=== PATIENT | female | born 1960 ===

== ENCOUNTER 2025-10-16 11:23 | Outpatient (AMB) | payer BC, SELFPAY ==
--- NOTE | 2025-10-16 11:24 | MHC.OFFVIS ---
Vital Signs 10/16/25 11:30 Height 5 ft 1 in Weight 145 lb BMI 27.4 Intake Visit Reasons: F/U after injection 08/29/2025 Intake Note: Patient is a 65 year old female in office today for a follow up after Left Hip Injection 08/29/25 injection did help the hip pain but concerned about the numbness thats in the hip and stops at the knee pulling pain Allergies acetaminophen (From Percocet) Allergy (Unknown, Verified 10/16/25 11:27) Unknown naproxen Allergy (Unknown, Verified 10/16/25 11:27) Unknown oxycodone (From Percocet) Allergy (Unknown, Verified 10/16/25 11:27) Unknown pseudoephedrine (From Sudafed) Allergy (Unknown, Verified 10/16/25 11:) Unknown HPI Comments Details: History of Present Illness The patient is a 65 year old female presenting for evaluation of left leg numbness. She reports the numbness is in her left leg, starting in the hip area and moving up, and it began after a hip operation. She states that she is also experiencing neuropathy. The patient has a history of left hip pain and is in need of a hip replacement. She recently received an injection in the hip. She reports 60% reduction of her hip pain with the hip injection 08/29/2025. She also reports issues with her left iliotibial (IT) band, which physical therapy previously addressed, and notes that using a foam roller was not helpful. 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 Patient's insurance will be changing in November. She would like to consider epidural injection but she would like to do it under her new insurance. Pain Description - Quality: The patient describes the sensation as numbness and neuropathy. - Location: The numbness is in the left leg, starting in the hip area and then moving up. - Onset: The symptoms began after her hip operation. Results - Imaging: An MRI performed on July 02, 2025, revealed severe left neuroforaminal stenosis at L5-S1. [facility] Surgical History (Updated 10/13/25 @ 15:43 by Pretty Rosas MA) History of hip replacement History of Social History (Updated 10/13/25 @ 15:44 by Pretty Rosas MA) Alcohol intake: current Alcohol intake frequency: holidays/special occasions only Current occupational status: employed Current occupation: parts sales manager Review of Systems Narrative Review of Systems - Neurological: Reports numbness in the left leg. - Musculoskeletal: Reports hip pain requiring replacement and a history of hip operation. - Musculoskeletal: Denies back pain, even with extension. - Constitutional: Denies sore throat. Physical Exam Exam Exam: Physical Exam Lumbar Spine: Examination of her lumbar spine, there is no visible swelling or deformity. She is tender to lower lumbar facets. She is otherwise nontender. Full range of motion of her lumbar spine. Special Tests: Lhermittes sign was negative Heel Toe walk is normal Left straight leg raise: Positive left Right straight leg raise: Negative Special tests Mariluz test is negative Ganslen's test is negative SI Joint compression test negative Lenin test negative Piriformis stretch is negative Lower Extremities: Less pain with left hip range of motion. Neuro: Sensation: Intact to lower extremities bilaterally Strength L2 (Psoas): 5/5 on the left and 5/5 on the right. L3 (Quads): 5/5 on the left and 5/5 on the right. L4 (Ant tibialis): 5/5 on the left and 5/5 on the right. L5 (EHL) 5/5 on the left and 5/5 on the right. S1 (Gastroc): 5/5 on the left and 5/5 on the right. DTR L4: (Patellar) Left 2 Right 2 S1: (Achilles) Left 1 Right 1 Babinski Downgoing No pathologic clonus. No involuntary movement. Vital Signs: BMI result Body Mass Index 27.4 Results Reviewed Results Reviewed: MRI lumbar spine 07/02/2025 impression: Degenerative changes lumbar spine with central canal and foraminal narrowing as detailed above. Severe left foraminal stenosis at L5-S1, which can be correlated with patient's symptoms and neurological examination. Assessment & Plan Assessment & Plan (1) Osteoarthritis of left hip: Code(s): M16.12 - Unilateral primary osteoarthritis, left hip Category: Medical Qualifiers: Osteoarthritis type: primary Qualified Code(s): M16.12 - Unilateral primary osteoarthritis, left hip (2) Lumbar radiculopathy: Code(s): M54.16 - Radiculopathy, lumbar region Category: Medical Plan Pain Management - Analgesia: The patient recently had a hip injection on August 29. - Analgesia: Gabapentin was discussed as a treatment option for nerve pain. - Analgesia: Tylenol was mentioned as an option for pain. - Aberrant Drug-Related Behaviors: The patient notes that injections are not addictive. Plan Patient was informed and verbally consented to the use of an ambient scribe for clinic note documentation during this visit. 1. Left Leg Numbness Secondary To Lumbar Neuroforaminal Stenosis The patient's left leg numbness is attributed to severe left L5-S1 neuroforaminal stenosis, identified on a prior MRI. It is suspected that her recent hip surgery may have aggravated this underlying condition. A left L5-S1 transforaminal epidural steroid injection is recommended for both diagnostic confirmation and therapeutic relief, which could last 3-6 months. The patient has agreed to proceed with the injection. Due to an impending change in her insurance, the procedure will be ordered in November after a brief follow-up appointment. Other conservative treatment options mentioned include physical therapy, child care sitter, and medications like Gabapentin and Tylenol. 2. Left Hip Pain The patient has chronic left hip pain and requires a hip replacement. There is a potential for symptom overlap between her hip pain and radicular symptoms, as both are on the left side. The patient was counseled on trying to compartmentalize her hip pain from her back and nerve pain to better identify the source of her symptoms. 3. Left Iliotibial Band Syndrome The patient reports left-sided pain consistent with iliotibial (IT) band syndrome, which may be related to altered gait mechanics from her hip condition. She previously tried a foam roller without significant benefit. No new specific treatment was initiated during this visit, as the primary focus was on her neuropathic symptoms. Discussion Notes I discussed with the patient that her left leg numbness is most likely due to severe left L5-S1 neuroforaminal stenosis, which was seen on her MRI from June 2025. I explained that while she doesn't have back pain, the numbness is a classic sign of a nerve problem originating from the spine and that her recent hip surgery could have aggravated this underlying condition. I recommended a diagnostic and therapeutic left L5-S1 injection to decrease inflammation around the nerve. I informed her that this is not a cure but may provide symptom relief for three to six months and help confirm the diagnosis. We discussed that further imaging, such as an X-ray, is unlikely to be fruitful as her symptoms are not suggestive of a bony problem. The patient consented to the proposed injection. Due to a change in her insurance at the start of the year, we agreed to schedule a brief follow-up visit in November to order the procedure under her new plan to avoid authorization issues. I also counseled her on the importance of distinguishing between her hip pain and her nerve-related leg symptoms to better guide future treatment. Patient Instructions - Your left leg numbness is likely caused by a pinched nerve in your lower back. - We plan to perform an injection in your lower back to help with the numbness. - This injection may not take away all your symptoms, but it can help reduce them for a period of time, possibly 3 to 6 months. - Please make a follow-up appointment for any time in November so we can order this injection under your new insurance plan. - Try to pay attention to the difference between your hip pain and the numbness in your leg, as they are likely from two different problems. - You are clear to get a vaccine at any time, as your last steroid shot was several weeks ago. - You may take Tylenol for pain if needed. Coding Level of Care Code Tele Est Pt Level 3 (13473) Diagnoses Primary osteoarthritis of left hip M16.12 Osteoarthritis type: primary Lumbar radiculopathy M54.16
[2025-10-16 11:30] VITALS: BMI 27.4
== END 2025-10-16 11:49 | disposition home or self-care (01) ==
LOC: HO.HPHYS 11:23
PROVIDERS: Visit Provider Physician Assistant
DX: M16.12 Unilateral primary osteoarthritis, left hip (principal); M54.16 Radiculopathy, lumbar region
CPT/HCPCS: 99213